=== PATIENT | female | born 1950 | race Two or more races ===

== ENCOUNTER 2022-02-24 12:54 | Inpatient (IN) | payer OTHER, MEDICARE ==
[~2022-02-24] VITALS: Ht 160 cm; Wt 57.6 kg
[2022-02-24] VITALS (12 sets, daily range): BP systolic 87–121; BP diastolic 48–69
[2022-02-24] MEDS ORDERED: SODIUM CHLORIDE 0.9% 2,000 ML IV ONE (14:30)
[2022-02-24 14:54] LABS: Albumin 2.5 g/dL (3.4-5.0); Calcium 8.3 mg/dL (8.5-10.1); Magnesium 3.6 mg/dL (1.6-2.6)
[2022-02-24 14:55] LABS: Basophils # (auto) 0 10 ^3/uL (0-0.2); Basophils % (auto) 0.2 % (0.0-2.0); Eosinophils # (auto) 0 10 ^3/uL (0-0.8); Eosinophils % (auto) 0.1 % (0.0-7.0); Hematocrit 33.5 % (36.0-46.0); Hemoglobin 10.6 g/dL (12.2-16.2); Lymphocytes # (auto) 0.7 10 ^3/uL (0.4-5.4); Lymphocytes % (auto) 4.1 % (10.0-50.0); Mean Corpuscular Hgb Conc. 31.6 g/dL (32.0-36.0); Mean Corpuscular Volume 88.7 fL (80.0-100.0); Monocytes % (auto) 5.9 % (0.0-12.0); Neutrophils # (auto) 14.7 10 ^3/uL (1.6-8.6); Neutrophils % (auto) 89.7 % (37.0-80.0); Red Blood Cells 3.77 10^6/uL (4.0-5.20); Red Cell Distribution Width 13.4 % (11.8-14.3); White Blood Cell 16.4 10^3/uL (4.4-10.8)
[2022-02-24 14:59] LABS: INR 1.08 (0.9-1.15); Partial Thromboplastin Time 23.9 sec (24.6-33.4)
[2022-02-24 15:00] LABS: Bilirubin, Total 0.4 mg/dL (0.2-1.0); Total Protein 6.8 g/dL (6.4-8.2)
[2022-02-24 15:19] LABS: Urine Bacteria NONE SEEN /hpf (None Seen); Urine Blood 2+ /uL (Negative); Urine WBC 2518 /hpf (0 - 5); Urine WBC Clumps PRESENT /hpf (None Seen)
[2022-02-24 15:50] LABS: BUN/Creatinine Ratio 30.5
[2022-02-24 15:51] LABS: Potassium 5.7 mmol/L (3.5-5.1)
[2022-02-24] MEDS ORDERED: VASOPRESSIN 50 UNITS in D5W 5% 247.5 ML IV SCH (16:30)
[2022-02-24] MEDS ORDERED: cefTRIAXone 1GM/50ML D5W 50 ML IV ONE (16:45)
[2022-02-24] MEDS: NOREPINEPHRINE 8 MG/250ML KIT 250 ML IV SCH (17:14)
[2022-02-24] MEDS ORDERED: ACETAMINOPHEN 325 MG TAB PO PRN (18:15)
[2022-02-24] MEDS ORDERED: HYDROcodone-ACET 5/325MG TAB PO PRN (18:15)
[2022-02-24] MEDS ORDERED: ONDANSETRON HCL 4 MG/2 ML VIAL IV PRN (18:15)
[2022-02-24] MEDS ORDERED: DEXTROSE (50%) 50ML SYRG IV PRN (18:30)
[2022-02-24] MEDS: SODIUM CHLORIDE 0.9% 1,000 ML IV SCH (21:36)
[2022-02-24] MEDS: InsuLIN REG 1unit/0.01ml Soln (100units/ml) SC SCH (22:00)
[2022-02-25] VITALS (82 sets, daily range): BP systolic 80–134; BP diastolic 4–82
[2022-02-25] MEDS: ACCU-CHEK COMFORT CURVE STRIP VI SCH ×5 (00:11→21:33)
[2022-02-25 01:07] LABS: Basophils # (auto) 0 10 ^3/uL (0-0.2); Eosinophils # (auto) 0.1 10 ^3/uL (0-0.8); Eosinophils % (auto) 0.3 % (0.0-7.0); Hematocrit 34.3 % (36.0-46.0); Hemoglobin 11.3 g/dL (12.2-16.2); Lymphocytes # (auto) 0.6 10 ^3/uL (0.4-5.4); Lymphocytes % (auto) 3.7 % (10.0-50.0); Mean Corpuscular Hemoglobin 29.2 pg (28.0-32.0); Mean Corpuscular Volume 88.3 fL (80.0-100.0); Monocytes # (auto) 1.1 10 ^3/uL (0-1.3); Monocytes % (auto) 6.2 % (0.0-12.0); Neutrophils # (auto) 15.4 10 ^3/uL (1.6-8.6); Neutrophils % (auto) 89.8 % (37.0-80.0); Nucleated Red Blood Cells % 0.2 %; Red Blood Cells 3.88 10^6/uL (4.0-5.20); Red Cell Distribution Width 13.7 % (11.8-14.3); White Blood Cell 17.2 10^3/uL (4.4-10.8)
[2022-02-25 01:23] LABS: Albumin 2.3 g/dL (3.4-5.0); Calcium 7.8 mg/dL (8.5-10.1); Potassium 4.7 mmol/L (3.5-5.1)
[2022-02-25 01:26] LABS: BUN/Creatinine Ratio 39.1; Bilirubin, Total 0.4 mg/dL (0.2-1.0)
[2022-02-25] MEDS: SODIUM CHLORIDE 0.9% 1,000 ML IV SCH ×2 (07:33→10:55)
[2022-02-25] MEDS: InsuLIN REG 1unit/0.01ml Soln (100units/ml) SC SCH ×4 (07:54→21:33)
[2022-02-25] MEDS ORDERED: cefTRIAXone 1GM/50ML D5W 50 ML IV SCH (10:00)
[2022-02-25] MEDS: PANTOPRAZOLE 40 MG/10 ML VIAL INJ IV SCH ×2 (10:24→21:28)
[2022-02-25] MEDS ORDERED: GOLYTELY 4L KIT PO ONE (12:15)
[2022-02-25] MEDS: SOD CHL 0.45% 1,000 ML IV SCH (14:30)
[2022-02-25] MEDS ORDERED: metroNIDAZOLE 500MG/100ML 100 ML IV ONE (15:45)
[2022-02-25] MEDS: NOREPINEPHRINE 8 MG/250ML KIT 250 ML IV SCH (16:30)
[2022-02-25] MEDS: PIPERACILLIN-TAZOB 2.25GM 50 ML IV SCH (20:31)
[2022-02-25] MEDS ORDERED: metroNIDAZOLE 500MG/100ML 100 ML IV SCH (22:00)
[2022-02-26] VITALS (28 sets, daily range): BP systolic 87–136; BP diastolic 49–71
[2022-02-26] MEDS: SOD CHL 0.45% 1,000 ML IV SCH ×2 (01:30→06:22)
[2022-02-26] MEDS: PIPERACILLIN-TAZOB 2.25GM 50 ML IV SCH ×4 (01:31→17:32)
[2022-02-26] MEDS: MORPHINE SULFATE INJ 2 MG/ml SYRG IV PRN (01:55)
[2022-02-26 04:24] LABS: Basophils # (auto) 0 10 ^3/uL (0-0.2); Basophils % (auto) 0.1 % (0.0-2.0); Eosinophils # (auto) 0 10 ^3/uL (0-0.8); Eosinophils % (auto) 0.1 % (0.0-7.0); Hematocrit 30.3 % (36.0-46.0); Lymphocytes # (auto) 0.5 10 ^3/uL (0.4-5.4); Lymphocytes % (auto) 3.2 % (10.0-50.0); Mean Corpuscular Hemoglobin 29.6 pg (28.0-32.0); Mean Corpuscular Volume 89.6 fL (80.0-100.0); Monocytes # (auto) 0.9 10 ^3/uL (0-1.3); Monocytes % (auto) 6.5 % (0.0-12.0); Neutrophils % (auto) 90.1 % (37.0-80.0); Nucleated Red Blood Cells % 0.1 %; Red Blood Cells 3.38 10^6/uL (4.0-5.20); Red Cell Distribution Width 13.5 % (11.8-14.3); White Blood Cell 14.4 10^3/uL (4.4-10.8)
[2022-02-26 04:37] LABS: Albumin 2.1 g/dL (3.4-5.0); Calcium 7.1 mg/dL (8.5-10.1); Potassium 3.7 mmol/L (3.5-5.1)
[2022-02-26 04:40] LABS: BUN/Creatinine Ratio 36.1; Bilirubin, Total 0.4 mg/dL (0.2-1.0); Total Protein 5.8 g/dL (6.4-8.2)
[2022-02-26] MEDS: ACCU-CHEK COMFORT CURVE STRIP VI SCH ×4 (06:23→22:19)
[2022-02-26] MEDS: InsuLIN REG 1unit/0.01ml Soln (100units/ml) SC SCH ×4 (06:23→22:00)
[2022-02-26] MEDS ORDERED: diphenhdrAMINE HCL 50 MG/1 ML VL ONE (08:45)
[2022-02-26] MEDS ORDERED: MIDAZOLAM HCL 5 MG/ML-1ML VIAL ONE (08:45)
[2022-02-26] MEDS ORDERED: fentaNYL CITRATE 100 MCG/2 ML VL ONE (08:46)
[2022-02-26] MEDS ORDERED: FLUMAZENIL 0.1 MG/ML INJ 10ML MDV IV ONE (08:50)
[2022-02-26] MEDS ORDERED: NALOXONE HCL 0.4 MG/ML VIAL ONE (08:50)
[2022-02-26] MEDS: PANTOPRAZOLE 40 MG/10 ML VIAL INJ IV SCH ×2 (10:26→22:19)
[2022-02-26] MEDS: D5W/SOD CHL 0.45% 1,000 ML IV SCH ×3 (11:23→23:59)
[2022-02-26] MEDS: NOREPINEPHRINE 8 MG/250ML KIT 250 ML IV SCH (16:30)
[2022-02-27 05:00] VITALS: BP 131/68
[2022-02-27] MEDS: PIPERACILLIN-TAZOB 2.25GM 50 ML IV SCH ×4 (05:11→20:32)
[2022-02-27 06:21] LABS: Basophils # (auto) 0 10 ^3/uL (0-0.2); Basophils % (auto) 0.3 % (0.0-2.0); Eosinophils # (auto) 0.3 10 ^3/uL (0-0.8); Eosinophils % (auto) 2.7 % (0.0-7.0); Hematocrit 35.8 % (36.0-46.0); Hemoglobin 11.7 g/dL (12.2-16.2); Lymphocytes # (auto) 0.9 10 ^3/uL (0.4-5.4); Lymphocytes % (auto) 7.4 % (10.0-50.0); Mean Corpuscular Hemoglobin 29.3 pg (28.0-32.0); Mean Corpuscular Hgb Conc. 32.7 g/dL (32.0-36.0); Mean Corpuscular Volume 89.7 fL (80.0-100.0); Monocytes # (auto) 0.7 10 ^3/uL (0-1.3); Monocytes % (auto) 5.8 % (0.0-12.0); Neutrophils # (auto) 9.8 10 ^3/uL (1.6-8.6); Neutrophils % (auto) 83.8 % (37.0-80.0); Nucleated Red Blood Cells % 0.1 %; Red Blood Cells 3.99 10^6/uL (4.0-5.20); Red Cell Distribution Width 13.6 % (11.8-14.3); White Blood Cell 11.7 10^3/uL (4.4-10.8)
[2022-02-27] MEDS: ACCU-CHEK COMFORT CURVE STRIP VI SCH ×4 (06:31→21:35)
[2022-02-27] MEDS: InsuLIN REG 1unit/0.01ml Soln (100units/ml) SC SCH ×4 (06:31→21:35)
[2022-02-27 06:44] LABS: Anion Gap 11 (5-15); Carbon Dioxide 21 mmol/L (21-32); Chloride 125 mmol/L (98-107); Potassium 3.4 mmol/L (3.5-5.1); Sodium 157 mmol/L (136-145)
[2022-02-27 06:45] LABS: Blood Urea Nitrogen 37 mg/dL (7-18); Glucose 108 mg/dL (74-106)
[2022-02-27 06:48] LABS: BUN/Creatinine Ratio 28.9; Calcium 7.4 mg/dL (8.5-10.1); GFR African American 53 mL/min; GFR Non-African American 44 mL/min
[2022-02-27 09:00] VITALS: BP 146/68
[2022-02-27] MEDS: PANTOPRAZOLE 40 MG/10 ML VIAL INJ IV SCH ×2 (09:46→21:15)
[2022-02-27 13:00] VITALS: BP 138/70
[2022-02-27] MEDS: D5W 5% 1,000 ML IV SCH ×2 (15:00→20:37)
[2022-02-27] MEDS: POTASSIUM CHL 20MEQ/100ML 100 ML IV SCH ×2 (15:01→17:00)
[2022-02-27] MEDS ORDERED: MANNITOL FTV 25% 12.5 GM/50 ML 50 ML IV ONE (16:45)
[2022-02-27 17:10] VITALS: BP 139/71
[2022-02-27 22:00] VITALS: BP 135/67
[2022-02-28] MEDS: PIPERACILLIN-TAZOB 2.25GM 50 ML IV SCH ×4 (00:24→19:15)
[2022-02-28 04:30] VITALS: BP 137/65
[2022-02-28] MEDS: D5W 5% 1,000 ML IV SCH ×2 (06:01→15:48)
[2022-02-28] MEDS: ACCU-CHEK COMFORT CURVE STRIP VI SCH ×4 (06:20→21:55)
[2022-02-28] MEDS: InsuLIN REG 1unit/0.01ml Soln (100units/ml) SC SCH ×4 (06:24→22:00)
[2022-02-28] MEDS: PANTOPRAZOLE 40 MG/10 ML VIAL INJ IV SCH ×2 (11:25→21:55)
[2022-02-28 13:00] VITALS: BP 122/74
[2022-02-28 17:00] VITALS: BP 124/65
[2022-02-28 22:00] VITALS: BP 123/67
[2022-03-01] MEDS: PIPERACILLIN-TAZOB 2.25GM 50 ML IV SCH ×2 (00:20→05:42)
[2022-03-01 05:00] VITALS: BP 137/62
[2022-03-01] MEDS: D5W 5% 1,000 ML IV SCH ×2 (05:03→05:43)
[2022-03-01 05:52] LABS: Calcium 6.9 mg/dL (8.5-10.1)
[2022-03-01 06:08] LABS: Potassium 2.7 mmol/L (3.5-5.1)
[2022-03-01] MEDS: ACCU-CHEK COMFORT CURVE STRIP VI SCH ×4 (06:43→22:00)
[2022-03-01] MEDS: InsuLIN REG 1unit/0.01ml Soln (100units/ml) SC SCH ×4 (06:43→22:39)
[2022-03-01] MEDS ORDERED: POTASSIUM EFFERVESENT TAB 25 MEQ PO ONE (07:00)
[2022-03-01 08:20] VITALS: BP 133/67
[2022-03-01] MEDS: PANTOPRAZOLE 40 MG/10 ML VIAL INJ IV SCH (09:29)
[2022-03-01 12:20] VITALS: BP 110/78
[2022-03-01] MEDS: D5W/SOD CHL 0.45%/KCL 20MEQ 1,000 ML IV SCH (13:56)
[2022-03-01 16:25] VITALS: BP 121/76
[2022-03-01] MEDS ORDERED: IOHEXOL 300 MG/ML 100ML BOTTLE IJ ONE (17:51)
[2022-03-01 22:00] VITALS: BP 113/67
[2022-03-02 05:00] VITALS: BP 127/89
[2022-03-02] MEDS: MORPHINE SULFATE INJ 2 MG/ml SYRG IV PRN ×2 (05:01→22:13)
[2022-03-02] MEDS: InsuLIN REG 1unit/0.01ml Soln (100units/ml) SC SCH ×4 (06:22→21:19)
[2022-03-02] MEDS: ACCU-CHEK COMFORT CURVE STRIP VI SCH ×4 (06:39→21:19)
[2022-03-02 06:49] LABS: Basophils # (auto) 0 10 ^3/uL (0-0.2); Basophils % (auto) 0.5 % (0.0-2.0); Eosinophils # (auto) 0.3 10 ^3/uL (0-0.8); Eosinophils % (auto) 4.3 % (0.0-7.0); Hematocrit 30.1 % (36.0-46.0); Hemoglobin 10.2 g/dL (12.2-16.2); Lymphocytes # (auto) 1.4 10 ^3/uL (0.4-5.4); Lymphocytes % (auto) 17.2 % (10.0-50.0); Mean Corpuscular Hemoglobin 29.3 pg (28.0-32.0); Mean Corpuscular Hgb Conc. 33.7 g/dL (32.0-36.0); Monocytes # (auto) 0.3 10 ^3/uL (0-1.3); Monocytes % (auto) 4.2 % (0.0-12.0); Neutrophils # (auto) 5.8 10 ^3/uL (1.6-8.6); Neutrophils % (auto) 73.8 % (37.0-80.0); Nucleated Red Blood Cells % 0.1 %; Red Blood Cells 3.47 10^6/uL (4.0-5.20); Red Cell Distribution Width 13.2 % (11.8-14.3); White Blood Cell 7.9 10^3/uL (4.4-10.8)
[2022-03-02 07:11] LABS: Calcium 7.2 mg/dL (8.5-10.1); Magnesium 1.2 mg/dL (1.6-2.6); Potassium 3.1 mmol/L (3.5-5.1)
[2022-03-02 07:13] LABS: BUN/Creatinine Ratio 13.7
[2022-03-02] MEDS: D5W/SOD CHL 0.45%/KCL 20MEQ 1,000 ML IV SCH ×3 (07:17→22:00)
[2022-03-02 09:23] VITALS: BP 121/65
[2022-03-02] MEDS: cefTRIAXone 1GM/50ML D5W 50 ML IV SCH (09:58)
[2022-03-02] MEDS ORDERED: PANTOPRAZOLE 40 MG TAB PO SCH (10:00)
[2022-03-02] MEDS ORDERED: POTASSIUM EFFERVESENT TAB 25 MEQ PO ONE (10:30)
[2022-03-02] MEDS: MAGNESIUM SULFATE 1GM/100ML 100 ML IV SCH ×2 (11:15→12:14)
[2022-03-02 12:53] VITALS: BP 104/79
[2022-03-02 16:16] VITALS: BP 141/69
[2022-03-02] MEDS: FAMOTIDINE 20 MG TAB PO SCH (21:57)
[2022-03-02 22:00] VITALS: BP 135/90
[2022-03-03 05:00] VITALS: BP 144/63
[2022-03-03] MEDS: InsuLIN REG 1unit/0.01ml Soln (100units/ml) SC SCH ×2 (07:00→11:56)
[2022-03-03] MEDS: ACCU-CHEK COMFORT CURVE STRIP VI SCH ×2 (07:00→11:57)
[2022-03-03] MEDS: cefTRIAXone 1GM/50ML D5W 50 ML IV SCH (08:33)
[2022-03-03] MEDS: FAMOTIDINE 20 MG TAB PO SCH (08:33)
[2022-03-03 09:00] VITALS: BP 128/75
[2022-03-03] MEDS ORDERED: PANT40TA2 PO (10:06)
[2022-03-03] MEDS ORDERED: SULF400T11 PO (10:06)
[2022-03-03 13:00] VITALS: BP 125/63
[2022-03-03] MEDS: D5W/SOD CHL 0.45%/KCL 20MEQ 1,000 ML IV SCH (16:20)
[2022-03-03 16:52] VITALS: BP 133/78
== END 2022-03-03 16:35 | disposition hospice, home (50) | DRG 871 ==
LOC: ER 12:54 → EDBD 12:54 → TELE 18:10 → ICU WEST 20:25 → TELE-CENTR 02-26 23:07
PROVIDERS: ADMIT Internal Medicine; ATTEND Internal Medicine
PROC: 30233N1 Transfusion of Nonautologous Red Blood Cells into Peripheral Vein, Percutaneous Approach (ICD-10-PCS; principal; 2022-02-24)
PROC: 05H933Z Insertion of Infusion Device into Right Brachial Vein, Percutaneous Approach (ICD-10-PCS; 2022-02-24)
PROC: B54MZZA Ultrasonography of Right Upper Extremity Veins, Guidance (ICD-10-PCS; 2022-02-24)
PROC: 0DJD8ZZ Inspection of Lower Intestinal Tract, Via Natural or Artificial Opening Endoscopic (ICD-10-PCS; 2022-02-26)
DX: A41.9 Sepsis, unspecified organism (principal); G92.8 Other toxic encephalopathy; R65.21 Severe sepsis with septic shock; N17.0 Acute kidney failure with tubular necrosis; K92.2 Gastrointestinal hemorrhage, unspecified; K62.6 Ulcer of anus and rectum; N13.6 Pyonephrosis; E87.1 Hypo-osmolality and hyponatremia; I69.351 Hemiplegia and hemiparesis following cerebral infarction affecting right dominant side; E44.0 Moderate protein-calorie malnutrition; Z20.822 Contact with and (suspected) exposure to COVID-19; N18.9 Chronic kidney disease, unspecified; E11.65 Type 2 diabetes mellitus with hyperglycemia; E11.22 Type 2 diabetes mellitus with diabetic chronic kidney disease; B96.89 Other specified bacterial agents as the cause of diseases classified elsewhere; D64.9 Anemia, unspecified; E87.5 Hyperkalemia; E87.6 Hypokalemia; E88.09 Other disorders of plasma-protein metabolism, not elsewhere classified; K56.41 Fecal impaction; Z51.5 Encounter for palliative care; Z68.27 Body mass index [BMI] 27.0-27.9, adult; I69.320 Aphasia following cerebral infarction; Z79.899 Other long term (current) drug therapy; Z87.442 Personal history of urinary calculi; Z90.49 Acquired absence of other specified parts of digestive tract; Z68.20 Body mass index [BMI] 20.0-20.9, adult
CPT/HCPCS: 36415; 71045; 74176; 74178; 80048; 80053; 81001; 82962; 83036; 83605; 83735; 84484; 85025; 85610; 85730; 86850; 86900; 86901; 86920; 87040; 87081; 87086; 87088; 87186; 92507; 92610; 93005; 96360; 99291; C9113; G0378; J0696; J1815; J2250; J2543; J3480; J3490; J7042; J7060

== ENCOUNTER 2022-03-23 19:54 | Inpatient (IN) | payer OTHER, MEDICARE ==
[~2022-03-23] VITALS: Ht 162.6 cm; Wt 64.4 kg
[~2022-03-23 19:54] MED LIST: PANT40TA2 PO; SULF400T11 PO
[2022-03-23] MEDS ORDERED: PANTOPRAZOLE 80 MG in SODIUM CHL 0.9% 100 ML IV ONE (20:15)
[2022-03-23] MEDS ORDERED: PANTOPRAZOLE 40mg/50ML NS AE 50 ML IV ONE (20:15)
[2022-03-23 20:42] LABS: Basophils # (auto) 0 10 ^3/uL (0-0.2); Basophils % (auto) 0.1 % (0.0-2.0); Eosinophils # (auto) 0 10 ^3/uL (0-0.8); Hematocrit 30.3 % (36.0-46.0); Hemoglobin 10.3 g/dL (12.2-16.2); Lymphocytes # (auto) 0.5 10 ^3/uL (0.4-5.4); Lymphocytes % (auto) 3.3 % (10.0-50.0); Mean Corpuscular Hgb Conc. 33.9 g/dL (32.0-36.0); Mean Corpuscular Volume 88.6 fL (80.0-100.0); Monocytes # (auto) 1.4 10 ^3/uL (0-1.3); Neutrophils # (auto) 13.1 10 ^3/uL (1.6-8.6); Neutrophils % (auto) 87.6 % (37.0-80.0); Red Blood Cells 3.42 10^6/uL (4.0-5.20)
[2022-03-23 21:00] LABS: INR 1.16 (0.9-1.15); Partial Thromboplastin Time 31.8 sec (24.6-33.4)
[2022-03-23 21:11] LABS: Albumin 2.7 g/dL (3.4-5.0); BUN/Creatinine Ratio 15.7; Calcium 8.8 mg/dL (8.5-10.1); Potassium 4.6 mmol/L (3.5-5.1)
[2022-03-23 21:14] LABS: Bilirubin, Total 0.7 mg/dL (0.2-1.0); Total Protein 6.9 g/dL (6.4-8.2)
[2022-03-23] MEDS ORDERED: CEFEPIME 1GM/ 50ML 50 ML IV STA ×2 (21:14→21:26)
[2022-03-23] MEDS ORDERED: SODIUM CHLORIDE 0.9% 1,750 ML IV ONE (21:15)
[2022-03-23] MEDS ORDERED: VANCOMYCIN PER PHARMACY 1,000 MG IV SCH (21:15)
[2022-03-23] MEDS ORDERED: ACETAMINOPHEN 325 MG TAB PO PRN (21:15)
[2022-03-23] MEDS ORDERED: VANCOMYCIN 1GM/250ML 250 ML IV ONE (21:45)
[2022-03-23 22:33] LABS: Urine Bacteria MANY /hpf (None Seen); Urine Blood Negative /uL (Negative); Urine Mucus FEW (None Seen); Urine Specific Gravity 1.011 (1.001-1.035); Urine WBC 37 /hpf (0 - 5)
[2022-03-23] MEDS ORDERED: NOREPINEPHRINE 8 MG/250ML KIT 250 ML IV ONE (22:35)
[2022-03-23] MEDS: NOREPINEPHRINE 8 MG/250ML KIT 250 ML IV SCH (22:38)
[2022-03-24] VITALS (64 sets, daily range): BP systolic 77–129; BP diastolic 35–67
[2022-03-24] MEDS ORDERED: NITROGLYCERIN 0.4 MG SL TAB SL PRN (01:15)
[2022-03-24] MEDS ORDERED: ONDANSETRON HCL 4 MG/2 ML VIAL IV PRN (01:15)
[2022-03-24] MEDS ORDERED: MORPHINE SULFATE INJ 2 MG/ml SYRG IV PRN (01:15)
[2022-03-24 01:44] LABS: Hematocrit 25.2 % (36.0-46.0); Hemoglobin 8.5 g/dL (12.2-16.2)
[2022-03-24] MEDS ORDERED: ACETAMINOPHEN 650 mg PER 20.3 mL UD PO ONE ×2 (04:45)
[2022-03-24 07:40] LABS: Calcium 7.6 mg/dL (8.5-10.1); Potassium 4.2 mmol/L (3.5-5.1)
[2022-03-24 07:42] LABS: BUN/Creatinine Ratio 19.9
[2022-03-24 07:51] LABS: Basophils # (auto) 0 10 ^3/uL (0-0.2); Basophils % (auto) 0.1 % (0.0-2.0); Eosinophils # (auto) 0 10 ^3/uL (0-0.8); Hematocrit 27.1 % (36.0-46.0); Lymphocytes # (auto) 0.4 10 ^3/uL (0.4-5.4); Lymphocytes % (auto) 2.1 % (10.0-50.0); Mean Corpuscular Hemoglobin 30.3 pg (28.0-32.0); Mean Corpuscular Hgb Conc. 33.2 g/dL (32.0-36.0); Mean Corpuscular Volume 91.2 fL (80.0-100.0); Monocytes # (auto) 1.8 10 ^3/uL (0-1.3); Monocytes % (auto) 8.8 % (0.0-12.0); Neutrophils # (auto) 18.6 10 ^3/uL (1.6-8.6); Red Blood Cells 2.97 10^6/uL (4.0-5.20); White Blood Cell 20.9 10^3/uL (4.4-10.8)
[2022-03-24] MEDS ORDERED: cefTRIAXone 1GM/50ML D5W 50 ML IV SCH (09:00)
[2022-03-24] MEDS: PANTOPRAZOLE 40 MG/10 ML VIAL INJ IV SCH ×2 (09:29→22:04)
[2022-03-24] MEDS ORDERED: PANTOPRAZOLE 40 MG/10 ML VIAL INJ IV SCH (10:00)
[2022-03-24] MEDS ORDERED: CEFEPIME 1GM/ 50ML 50 ML IV SCH (10:00)
[2022-03-24] MEDS ORDERED: VANCOMYCIN 1GM/250ML 250 ML IV SCH (13:00)
[2022-03-24] MEDS: NOREPINEPHRINE 8 MG/250ML KIT 250 ML IV SCH (13:36)
[2022-03-24] MEDS: SODIUM CHLORIDE 0.9% 1,000 ML IV SCH (17:03)
[2022-03-24] MEDS: MEROPENEM 500MG IVPB 50 ML IV SCH (17:12)
[2022-03-24] MEDS: ACETAMINOPHEN 325 MG TAB PO PRN (20:48)
[2022-03-25] VITALS (59 sets, daily range): BP systolic 80–137; BP diastolic 27–72
[2022-03-25] MEDS: MEROPENEM 500MG IVPB 50 ML IV SCH (03:10)
[2022-03-25] MEDS: SODIUM CHLORIDE 0.9% 1,000 ML IV SCH ×2 (04:20→12:08)
[2022-03-25 05:01] LABS: Basophils # (auto) 0 10 ^3/uL (0-0.2); Basophils % (auto) 0.2 % (0.0-2.0); Eosinophils # (auto) 0 10 ^3/uL (0-0.8); Eosinophils % (auto) 0.1 % (0.0-7.0); Hemoglobin 8.6 g/dL (12.2-16.2); Lymphocytes # (auto) 0.8 10 ^3/uL (0.4-5.4); Lymphocytes % (auto) 4.7 % (10.0-50.0); Mean Corpuscular Hemoglobin 30.6 pg (28.0-32.0); Mean Corpuscular Hgb Conc. 34.4 g/dL (32.0-36.0); Mean Corpuscular Volume 88.8 fL (80.0-100.0); Monocytes # (auto) 1.2 10 ^3/uL (0-1.3); Monocytes % (auto) 6.8 % (0.0-12.0); Neutrophils # (auto) 15.4 10 ^3/uL (1.6-8.6); Neutrophils % (auto) 88.2 % (37.0-80.0); Red Blood Cells 2.82 10^6/uL (4.0-5.20); Red Cell Distribution Width 14.7 % (11.8-14.3); White Blood Cell 17.5 10^3/uL (4.4-10.8)
[2022-03-25 05:12] LABS: BUN/Creatinine Ratio 23.9; Calcium 7.7 mg/dL (8.5-10.1); Potassium 3.8 mmol/L (3.5-5.1)
[2022-03-25] MEDS: ACETAMINOPHEN 325 MG TAB PO PRN ×2 (06:07→18:39)
[2022-03-25] MEDS: MORPHINE SULFATE INJ 2 MG/ml SYRG IV PRN ×3 (09:05→20:59)
[2022-03-25] MEDS: PANTOPRAZOLE 40 MG/10 ML VIAL INJ IV SCH ×2 (10:20→21:49)
[2022-03-25] MEDS: MEROPENEM 1GM IVPB 100 ML IV SCH ×2 (14:22→21:49)
[2022-03-25] MEDS ORDERED: LACTULOSE 20Gm/30ML SOLN PO ONE (15:15)
[2022-03-25] MEDS: NOREPINEPHRINE 8 MG/250ML KIT 250 ML IV SCH (22:45)
[2022-03-26] VITALS (20 sets, daily range): BP systolic 105–157; BP diastolic 51–90
[2022-03-26] MEDS: MORPHINE SULFATE INJ 2 MG/ml SYRG IV PRN (01:10)
[2022-03-26] MEDS: ACETAMINOPHEN 325 MG TAB PO PRN (05:14)
[2022-03-26] MEDS: MEROPENEM 1GM IVPB 100 ML IV SCH ×3 (05:57→22:23)
[2022-03-26] MEDS: SODIUM CHLORIDE 0.9% 1,000 ML IV SCH ×2 (05:57→20:20)
[2022-03-26 08:13] LABS: Basophils # (auto) 0 10 ^3/uL (0-0.2); Basophils % (auto) 0.3 % (0.0-2.0); Eosinophils # (auto) 0 10 ^3/uL (0-0.8); Eosinophils % (auto) 0.3 % (0.0-7.0); Hematocrit 26.3 % (36.0-46.0); Hemoglobin 8.9 g/dL (12.2-16.2); Lymphocytes # (auto) 0.7 10 ^3/uL (0.4-5.4); Lymphocytes % (auto) 6.4 % (10.0-50.0); Mean Corpuscular Hemoglobin 29.8 pg (28.0-32.0); Mean Corpuscular Hgb Conc. 33.7 g/dL (32.0-36.0); Mean Corpuscular Volume 88.5 fL (80.0-100.0); Monocytes # (auto) 0.9 10 ^3/uL (0-1.3); Monocytes % (auto) 8.2 % (0.0-12.0); Neutrophils # (auto) 9.6 10 ^3/uL (1.6-8.6); Neutrophils % (auto) 84.8 % (37.0-80.0); Red Blood Cells 2.97 10^6/uL (4.0-5.20); Red Cell Distribution Width 15.1 % (11.8-14.3); White Blood Cell 11.3 10^3/uL (4.4-10.8)
[2022-03-26 08:21] LABS: BUN/Creatinine Ratio 18.8; Potassium 3.6 mmol/L (3.5-5.1)
[2022-03-26] MEDS: PANTOPRAZOLE 40 MG/10 ML VIAL INJ IV SCH ×2 (09:28→22:22)
[2022-03-26] MEDS ORDERED: POLYETHYLENE GLYCOL 17 GM PWDR PO ONE (13:00)
[2022-03-26] MEDS ORDERED: POLYETHYLENE GLYCOL 17 GM PWDR PO PRN (13:00)
[2022-03-26] MEDS ORDERED: traMADol HCL 50 MG TAB PO PRN (13:00)
[2022-03-26] MEDS ORDERED: VANCOMYCIN PER PHARMACY 0 MG IV SCH (18:30)
[2022-03-26] MEDS: DOCUSATE SOD 100 MG CAP PO SCH (22:00)
[2022-03-27] VITALS (13 sets, daily range): BP systolic 93–129; BP diastolic 39–71
[2022-03-27] MEDS: MEROPENEM 1GM IVPB 100 ML IV SCH ×3 (06:00→23:25)
[2022-03-27] MEDS: SODIUM CHLORIDE 0.9% 1,000 ML IV SCH ×2 (09:40→23:25)
[2022-03-27] MEDS: DOCUSATE SOD 100 MG CAP PO SCH (10:00)
[2022-03-27] MEDS: PANTOPRAZOLE 40 MG/10 ML VIAL INJ IV SCH ×2 (10:14→23:25)
[2022-03-27 10:20] LABS: Basophils # (auto) 0.1 10 ^3/uL (0-0.2); Basophils % (auto) 0.6 % (0.0-2.0); Eosinophils # (auto) 0.1 10 ^3/uL (0-0.8); Eosinophils % (auto) 0.7 % (0.0-7.0); Hematocrit 27.7 % (36.0-46.0); Hemoglobin 9.3 g/dL (12.2-16.2); Lymphocytes # (auto) 1.2 10 ^3/uL (0.4-5.4); Lymphocytes % (auto) 10.4 % (10.0-50.0); Mean Corpuscular Hemoglobin 29.6 pg (28.0-32.0); Mean Corpuscular Hgb Conc. 33.7 g/dL (32.0-36.0); Mean Corpuscular Volume 87.7 fL (80.0-100.0); Monocytes % (auto) 8.9 % (0.0-12.0); Neutrophils # (auto) 9.1 10 ^3/uL (1.6-8.6); Neutrophils % (auto) 79.4 % (37.0-80.0); Nucleated Red Blood Cells % 0.1 %; Red Blood Cells 3.16 10^6/uL (4.0-5.20); Red Cell Distribution Width 15.1 % (11.8-14.3); White Blood Cell 11.4 10^3/uL (4.4-10.8)
[2022-03-27] MEDS ORDERED: BISACODYL 10 MG RECT SUPP PR ONE (10:30)
[2022-03-27 10:32] LABS: BUN/Creatinine Ratio 12.8; Calcium 7.7 mg/dL (8.5-10.1); Potassium 3.6 mmol/L (3.5-5.1)
[2022-03-27] MEDS: MORPHINE SULFATE INJ 2 MG/ml SYRG IV PRN (14:35)
[2022-03-28 05:00] VITALS: BP 111/72
[2022-03-28] MEDS: MEROPENEM 1GM IVPB 100 ML IV SCH ×3 (05:53→23:10)
[2022-03-28 09:27] VITALS: BP 129/68
[2022-03-28] MEDS: LACTULOSE 20Gm/30ML SOLN PO SCH (10:37)
[2022-03-28] MEDS: PANTOPRAZOLE 40 MG/10 ML VIAL INJ IV SCH ×2 (10:37→23:10)
[2022-03-28 13:13] VITALS: BP 141/73
[2022-03-28] MEDS: SODIUM CHLORIDE 0.9% 1,000 ML IV SCH ×2 (14:22→23:50)
[2022-03-28 16:34] VITALS: BP 123/72
[2022-03-28 20:00] VITALS: BP 133/74
[2022-03-28 22:00] VITALS: BP 138/70
[2022-03-28] MEDS: Ensure Enlive Vanilla 8oz Bottle PO SCH (22:00)
[2022-03-29 05:00] VITALS: BP 133/74
[2022-03-29] MEDS: MEROPENEM 1GM IVPB 100 ML IV SCH ×3 (06:09→23:03)
[2022-03-29] MEDS: Ensure Enlive Vanilla 8oz Bottle PO SCH ×3 (06:13→23:03)
[2022-03-29 06:14] LABS: Mean Corpuscular Hemoglobin 29.8 pg (28.0-32.0); White Blood Cell 7.8 10^3/uL (4.4-10.8)
[2022-03-29 06:18] LABS: Hematocrit 23.9 % (36.0-46.0); Hemoglobin 8.2 g/dL (12.2-16.2); Mean Corpuscular Hgb Conc. 34.3 g/dL (32.0-36.0); Mean Corpuscular Volume 86.8 fL (80.0-100.0); Red Blood Cells 2.75 10^6/uL (4.0-5.20); Red Cell Distribution Width 15.2 % (11.8-14.3)
[2022-03-29 07:11] LABS: Basophils % (manual) 0 (0.0-2.0); Blast Cells 0; Metamyelocytes % 0; Myelocytes % 0; Promyelocytes % 0; Reactive Lymphocytes 0
[2022-03-29 08:30] VITALS: BP 124/74
[2022-03-29 08:53] LABS: Band Neutrophils % (manual) 4; Eosinophils % (manual) 2 (0-7); Lymphocytes % (manual) 35 (10.0-50.0); Monocytes % (manual) 6 (0-12)
[2022-03-29] MEDS: LACTULOSE 20Gm/30ML SOLN PO SCH (09:56)
[2022-03-29] MEDS: PANTOPRAZOLE 40 MG/10 ML VIAL INJ IV SCH ×2 (09:56→23:03)
[2022-03-29 12:30] VITALS: BP 123/58
[2022-03-29 16:01] LABS: INR 1.05 (0.9-1.15); Partial Thromboplastin Time 27.4 sec (24.6-33.4)
[2022-03-29 16:31] VITALS: BP 128/70
[2022-03-29 22:00] VITALS: BP 128/52
[2022-03-30 05:00] VITALS: BP 137/58
[2022-03-30] MEDS: Ensure Enlive Vanilla 8oz Bottle PO SCH ×2 (06:00→13:53)
[2022-03-30 07:55] VITALS: BP 130/51
[2022-03-30 08:57] VITALS: BP 130/51
[2022-03-30] MEDS ORDERED: MEROPENEM 1GM IVPB 100 ML IV SCH (09:00)
[2022-03-30] MEDS: LACTULOSE 20Gm/30ML SOLN PO SCH (09:40)
[2022-03-30] MEDS: PANTOPRAZOLE 40 MG/10 ML VIAL INJ IV SCH (10:41)
[2022-03-30 12:47] VITALS: BP 158/67
[2022-03-30 13:29] VITALS: BP 154/72
== END 2022-03-30 16:14 | DRG 871 ==
LOC: EDBD 19:54 → ER 19:57 → TELE 03-24 01:08 → ICU WEST 03-24 04:05 → TELE-CENTR 03-27 20:47 → CENTRAL 03-30 07:50
PROVIDERS: ADMIT Nurse Practitioner; ATTEND Internal Medicine
PROC: 05HC33Z Insertion of Infusion Device into Left Basilic Vein, Percutaneous Approach (ICD-10-PCS; principal; 2022-03-24)
PROC: B54NZZA Ultrasonography of Left Upper Extremity Veins, Guidance (ICD-10-PCS; 2022-03-24)
PROC: 05HC33Z Insertion of Infusion Device into Left Basilic Vein, Percutaneous Approach (ICD-10-PCS; 2022-03-30)
PROC: B54NZZA Ultrasonography of Left Upper Extremity Veins, Guidance (ICD-10-PCS; 2022-03-30)
DX: A41.51 Sepsis due to Escherichia coli [E. coli] (principal); E43 Unspecified severe protein-calorie malnutrition; N17.0 Acute kidney failure with tubular necrosis; R65.21 Severe sepsis with septic shock; K92.2 Gastrointestinal hemorrhage, unspecified; N13.6 Pyonephrosis; Z16.12 Extended spectrum beta lactamase (ESBL) resistance; I69.351 Hemiplegia and hemiparesis following cerebral infarction affecting right dominant side; R33.9 Retention of urine, unspecified; N93.9 Abnormal uterine and vaginal bleeding, unspecified; Z20.822 Contact with and (suspected) exposure to COVID-19; D64.9 Anemia, unspecified; K56.41 Fecal impaction; Z68.20 Body mass index [BMI] 20.0-20.9, adult; I69.320 Aphasia following cerebral infarction
CPT/HCPCS: 36415; 71045; 74176; 76856; 80048; 80053; 80202; 81001; 82270; 82962; 83605; 83735; 83880; 84484; 85007; 85014; 85018; 85025; 85027; 85610; 85730; 86850; 86900; 86901; 87040; 87077; 87081; 87086; 87088; 87186; 87426; 87804; 93005; 96365; 96368; 99291; C9113; G0378; J2185

== ENCOUNTER 2023-08-26 22:37 | Inpatient (IN) | payer MEDICARE, OTHER ==
[~2023-08-26] VITALS: Ht 170.2 cm; Wt 50.6 kg
[2023-08-26 23:41] LABS: Basophils # (auto) 0.1 10 ^3/uL (0-0.2); Basophils % (auto) 1.3 % (0.0-2.0); Eosinophils # (auto) 0.2 10 ^3/uL (0-0.8); Eosinophils % (auto) 3.8 % (0.0-7.0); Hematocrit 37.1 % (36.0-46.0); Hemoglobin 12.2 g/dL (12.2-16.2); Lymphocytes # (auto) 1.9 10 ^3/uL (0.4-5.4); Lymphocytes % (auto) 38.7 % (10.0-50.0); Mean Corpuscular Hgb Conc. 32.9 g/dL (32.0-36.0); Monocytes # (auto) 0.4 10 ^3/uL (0-1.3); Monocytes % (auto) 7.2 % (0.0-12.0); Neutrophils # (auto) 2.4 10 ^3/uL (1.6-8.6); Nucleated Red Blood Cells % 0.1 %; Red Blood Cells 4.07 10^6/uL (4.0-5.20); Red Cell Distribution Width 14.5 % (11.8-14.3); White Blood Cell 4.9 10^3/uL (4.4-10.8)
[2023-08-26 23:48] LABS: Chloride 110 mmol/L (98-107); Potassium 3.8 mmol/L (3.5-5.1); Sodium 140 mmol/L (136-145)
[2023-08-26 23:49] LABS: Anion Gap 2 (5-15); Calcium 9.2 mg/dL (8.7-10.4); Carbon Dioxide 28 mmol/L (20-30)
[2023-08-26 23:54] LABS: BUN/Creatinine Ratio 22.7 (10.0-20.0); Blood Urea Nitrogen 22 mg/dL (9-23); Glucose 103 mg/dL (74-106)
[2023-08-27] VITALS (8 sets, daily range): BP systolic 126–150; BP diastolic 49–87; PULSE 60–87; RESP 14–18; TEMP 98.1–98.4; O2SAT 95–100
[2023-08-27 01:15] LABS: Urine Bacteria MOD /hpf (None Seen); Urine Blood Negative /uL (Negative); Urine Clarity HAZY (Clear); Urine Mucus FEW (None Seen); Urine Protein, UAD TRACE (Negative); Urine Specific Gravity 1.018 (1.001-1.035); Urine Urobilinogen Normal (Negative); Urine WBC 84 /hpf (0 - 5); Urine pH 6.5 (5.0-8.0)
[2023-08-27 01:18] LABS: Urine Color STRAW (Yellow)
[2023-08-27] MEDS: cefTRIAXone 1GM/50ML D5W 50 ML IV ONE (02:17)
[2023-08-27] MEDS ORDERED: NITROGLYCERIN 0.4 MG SL TAB SL PRN (03:15)
[2023-08-27] MEDS ORDERED: DOCUSATE SOD 100 MG CAP PO PRN (03:15)
[2023-08-27] MEDS ORDERED: MORPHINE SULFATE INJ 2 MG/ml SYRG IV PRN (03:15)
[2023-08-27 04:50] LABS: Basophils # (auto) 0.1 10 ^3/uL (0-0.2); Basophils % (auto) 0.9 % (0.0-2.0); Eosinophils # (auto) 0.1 10 ^3/uL (0-0.8); Eosinophils % (auto) 1.7 % (0.0-7.0); Hematocrit 35.9 % (36.0-46.0); Hemoglobin 11.7 g/dL (12.2-16.2); Lymphocytes # (auto) 1.7 10 ^3/uL (0.4-5.4); Lymphocytes % (auto) 31.3 % (10.0-50.0); Mean Corpuscular Hemoglobin 29.6 pg (28.0-32.0); Mean Corpuscular Hgb Conc. 32.5 g/dL (32.0-36.0); Mean Corpuscular Volume 91.2 fL (80.0-100.0); Monocytes # (auto) 0.4 10 ^3/uL (0-1.3); Neutrophils # (auto) 3.3 10 ^3/uL (1.6-8.6); Neutrophils % (auto) 59.1 % (37.0-80.0); Nucleated Red Blood Cells % 0.1 %; Red Blood Cells 3.94 10^6/uL (4.0-5.20); Red Cell Distribution Width 14.4 % (11.8-14.3); White Blood Cell 5.5 10^3/uL (4.4-10.8)
[2023-08-27 05:08] LABS: Albumin 3.4 g/dL (3.2-4.8); Alkaline Phosphatase 48 U/L (46-116); Anion Gap 4 (5-15); Aspartate Aminotransferase 13 U/L (13-40); BUN/Creatinine Ratio 22.7 (10.0-20.0); Blood Urea Nitrogen 20 mg/dL (9-23); Calcium 9.2 mg/dL (8.7-10.4); Carbon Dioxide 26 mmol/L (20-30); Chloride 110 mmol/L (98-107); Glucose 99 mg/dL (74-106); Potassium 3.7 mmol/L (3.5-5.1); Sodium 140 mmol/L (136-145)
[2023-08-27 05:09] LABS: Bilirubin, Total 0.4 mg/dL (0.2-1.0); Total Protein 6.4 g/dL (5.7-8.2)
[2023-08-27 05:10] LABS: Alanine Aminotransferase < 9 U/L (7-40)
[2023-08-27] MEDS: SODIUM CHLOR 0.9% PF (SALINE LOCK) 10ML VIAL/SYR IV SCH (06:14)
[2023-08-27] MEDS ORDERED: CEPH250C PO (10:05)
[2023-08-27] MEDS: ASPirin 81 mg TAB PO SCH (11:40)
[2023-08-27] MEDS: FAMOTIDINE (10MG/ML) 2ML VL IV SCH (11:40)
[2023-08-27] MEDS: HYDROcodone-ACET 5/325MG TAB PO PRN (13:14)
[2023-08-27] MEDS: ONDANSETRON HCL 4 MG/2 ML VIAL IV PRN (15:29)
[2023-08-27] MEDS: cefTRIAXone 1GM/50ML D5W 50 ML IV SCH (20:27)
[2023-08-28] VITALS (7 sets, daily range): BP systolic 96–152; BP diastolic 42–79; PULSE 53–81; RESP 14–20; TEMP 97.4–98.6; O2SAT 95–99
[2023-08-28 05:53] LABS: Basophils # (auto) 0.1 10 ^3/uL (0-0.2); Basophils % (auto) 1.1 % (0.0-2.0); Eosinophils # (auto) 0.1 10 ^3/uL (0-0.8); Eosinophils % (auto) 2.6 % (0.0-7.0); Hematocrit 33.9 % (36.0-46.0); Lymphocytes # (auto) 1.8 10 ^3/uL (0.4-5.4); Lymphocytes % (auto) 36.6 % (10.0-50.0); Mean Corpuscular Hemoglobin 29.9 pg (28.0-32.0); Mean Corpuscular Hgb Conc. 32.3 g/dL (32.0-36.0); Mean Corpuscular Volume 92.7 fL (80.0-100.0); Monocytes # (auto) 0.4 10 ^3/uL (0-1.3); Monocytes % (auto) 8.5 % (0.0-12.0); Neutrophils # (auto) 2.5 10 ^3/uL (1.6-8.6); Neutrophils % (auto) 51.2 % (37.0-80.0); Nucleated Red Blood Cells % 0.1 %; Red Blood Cells 3.66 10^6/uL (4.0-5.20); Red Cell Distribution Width 14.6 % (11.8-14.3); White Blood Cell 4.8 10^3/uL (4.4-10.8)
[2023-08-28 06:13] LABS: Albumin 3.3 g/dL (3.2-4.8); Alkaline Phosphatase 43 U/L (46-116); Anion Gap 4 (5-15); Blood Urea Nitrogen 20 mg/dL (9-23); Calcium 9.2 mg/dL (8.7-10.4); Carbon Dioxide 26 mmol/L (20-30); Chloride 109 mmol/L (98-107); Glucose 83 mg/dL (74-106); Potassium 4.2 mmol/L (3.5-5.1); Sodium 139 mmol/L (136-145)
[2023-08-28 06:14] LABS: Aspartate Aminotransferase 12 U/L (13-40); Total Protein 5.9 g/dL (5.7-8.2)
[2023-08-28 06:33] LABS: Alanine Aminotransferase < 9 U/L (7-40)
[2023-08-28 07:09] LABS: Bilirubin, Total 0.4 mg/dL (0.2-1.0)
[2023-08-28] MEDS: SODIUM CHLORIDE 0.9% 500 ML IV SCH (08:45)
[2023-08-28 21:28] LABS: COVID19 ANTIGEN SOFIA FIA NEGATIVE (NEGATIVE)
[2023-08-28 21:33] LABS: Rapid Influenza A Negative (Negative); Rapid Influenza B Negative (Negative)
[2023-08-28 21:50] LABS: Urine Bacteria MANY /hpf (None Seen); Urine Blood 3+ /uL (Negative); Urine Clarity HAZY (Clear); Urine Hyaline Cast MOD /lpf (0 - 2); Urine Mucus FEW (None Seen); Urine Protein, UAD 1+ (Negative); Urine Specific Gravity 1.012 (1.001-1.035); Urine Urobilinogen Normal (Negative); Urine WBC 39 /hpf (0 - 5); Urine pH 6.5 (5.0-8.0)
[2023-08-28 21:55] LABS: Urine Color STRAW (Yellow)
[2023-08-29] VITALS (8 sets, daily range): BP systolic 133–167; BP diastolic 75–92; PULSE 58–97; RESP 12–20; TEMP 97.3–98.6; O2SAT 95–98
[2023-08-29 06:37] LABS: Basophils # (auto) 0.1 10 ^3/uL (0-0.2); Basophils % (auto) 1.3 % (0.0-2.0); Eosinophils # (auto) 0.2 10 ^3/uL (0-0.8); Eosinophils % (auto) 3.7 % (0.0-7.0); Hematocrit 34.2 % (36.0-46.0); Hemoglobin 11.3 g/dL (12.2-16.2); Lymphocytes # (auto) 1.8 10 ^3/uL (0.4-5.4); Lymphocytes % (auto) 37.7 % (10.0-50.0); Mean Corpuscular Hemoglobin 30.4 pg (28.0-32.0); Mean Corpuscular Volume 92.1 fL (80.0-100.0); Monocytes # (auto) 0.4 10 ^3/uL (0-1.3); Monocytes % (auto) 7.5 % (0.0-12.0); Neutrophils # (auto) 2.4 10 ^3/uL (1.6-8.6); Neutrophils % (auto) 49.8 % (37.0-80.0); Nucleated Red Blood Cells % 0.2 %; Red Blood Cells 3.71 10^6/uL (4.0-5.20); Red Cell Distribution Width 14.3 % (11.8-14.3); White Blood Cell 4.7 10^3/uL (4.4-10.8)
[2023-08-29 06:43] LABS: Anion Gap 5 (5-15); Carbon Dioxide 24 mmol/L (20-30); Chloride 108 mmol/L (98-107); Potassium 3.9 mmol/L (3.5-5.1); Sodium 137 mmol/L (136-145)
[2023-08-29 06:45] LABS: Calcium 9.3 mg/dL (8.7-10.4)
[2023-08-29 06:49] LABS: Glucose 87 mg/dL (74-106)
[2023-08-29 06:50] LABS: BUN/Creatinine Ratio 17.4 (10.0-20.0); Blood Urea Nitrogen 16 mg/dL (9-23); Magnesium 2.1 mg/dL (1.6-2.6)
[2023-08-29 07:51] LABS: INR 1.08 (0.9-1.15); Prothrombin Time 11.3 sec (9.3-11.8)
[2023-08-29 11:33] LABS: % Iron Saturation 25.9 % (15-50)
[2023-08-29 11:55] LABS: Triglycerides 73 mg/dL (< 150)
[2023-08-29 11:56] LABS: LDL Cholesterol 82 mg/dL (< 100)
[2023-08-29 11:57] LABS: Cholesterol 138 mg/dL (< 200); HDL Cholesterol 50 mg/dL (40-59)
[2023-08-29 11:58] LABS: Folate (Folic Acid) > 24.00 ng/mL (>5.38)
[2023-08-29 11:59] LABS: Ferritin 67.2 ng/mL (10-291)
[2023-08-29] MEDS: MEROPENEM 1GM IVPB 50 ML IV SCH (12:42)
[2023-08-29] MEDS: hydrALAZINE HCL 20 MG/ML VL IV PRN (19:02)
[2023-08-30] VITALS (8 sets, daily range): BP systolic 113–155; BP diastolic 43–81; PULSE 62–95; RESP 12–20; TEMP 97.9–98.5; O2SAT 97–99
[2023-08-30 10:03] LABS: Chloride 107 mmol/L (98-107); Sodium 137 mmol/L (136-145)
[2023-08-30 10:04] LABS: Anion Gap 3 (5-15); Calcium 9.6 mg/dL (8.5-10.1); Carbon Dioxide 27 mmol/L (20-30)
[2023-08-30 10:09] LABS: BUN/Creatinine Ratio 13.2 (10.0-20.0); Blood Urea Nitrogen 12 mg/dL (9-23); Glucose 97 mg/dL (74-106)
[2023-08-30] MEDS: ERTAPENEM SOD INJ 1 GM in SODIUM CHL 0.9% 50 ML IV SCH (16:03)
[2023-08-30] MEDS: TEMAZEPAM 15 MG CAP PO ONE (21:24)
[2023-08-30] MEDS: ACETAMINOPHEN 325 MG TAB PO PRN (21:24)
[2023-08-31 01:00] VITALS: BP 110/65; PULSE 73; RESP 20; TEMP 97.9; O2SAT 96
[2023-08-31 05:00] VITALS: BP 105/55; PULSE 78; RESP 20; TEMP 97.9; O2SAT 99
[2023-08-31 09:00] VITALS: BP 155/65; PULSE 84; RESP 18; TEMP 97.7; O2SAT 100
[2023-08-31] MEDS: Ensure HIGH Protein Chocolate 8oz Bottle PO SCH (12:00)
[2023-08-31 13:00] VITALS: BP 143/79; PULSE 76; RESP 14; TEMP 97.6; O2SAT 98
== END 2023-08-31 17:30 | DRG 641 ==
LOC: ER 22:37 → EDBD 22:37 → TELE 08-27 03:07 → TELE-EAST 08-27 10:08 → EAST 08-28 23:58
PROVIDERS: ADMIT Internal Medicine; ATTEND Internal Medicine
DX: E86.1 Hypovolemia (principal); N39.0 Urinary tract infection, site not specified; R47.01 Aphasia; Z16.12 Extended spectrum beta lactamase (ESBL) resistance; D64.9 Anemia, unspecified; B96.20 Unspecified Escherichia coli [E. coli] as the cause of diseases classified elsewhere; I69.30 Unspecified sequelae of cerebral infarction
CPT/HCPCS: 36415; 70450; 71045; 80048; 80053; 80061; 81001; 82306; 82607; 82728; 82746; 83540; 83550; 83735; 84443; 84484; 85025; 85610; 87081; 87086; 87426; 87804; 93005; 97110; 97116; 97163; 97530; G0378; J1335; J2185; J2405; J3490